=== PATIENT | female | born 1955 ===

== ENCOUNTER 2019-11-08 21:10 | Inpatient (IN) ==
[2019-11-09] MEDS: hydrALAZINE 20 MG/1 ML VIAL IV PRN (01:10)
[2019-11-09 01:35] LABS: Basophils % 0.2 % (0.0-0.8); Eosinophils % 0.1 % (0.00-10.9); Hematocrit 25.6 VOL% (35.7-47.0); Immature Granulocytes % 0.4 %; Immature Granulocytes Absolute 0.08 #; Lymphocytes # 0.6 10*3/uL (1.4-4.0); Lymphocytes % 3.4 % (21.3-54.2); Mean Corpuscular HGB Conc 31.3 GM/DL (32-36); Mean Corpuscular Volume 97.7 FL (87-102); Mean Platelet Volume 11.1 FL (9.6-12.0); Monocytes % 5.2 % (1.7-12.7); Neutrophils % 90.7 % (38.7-73.9); Platelet Count 129 T/CUMM (130-400); Red Blood Count 2.62 MC/CUMM (3.8-5.5); White Blood Count 18.4 T/CUMM (4-12)
[2019-11-09 01:51] LABS: Calcium 9.2 MG/DL (8.5-10.1); Osmolality,Calculated 283.8 MOS/KG (273-304)
[2019-11-09] MEDS ORDERED: BISACODYL 5 MG TABLET PO PRN (01:52)
[2019-11-09] MEDS ORDERED: MORPHINE 4 MG/1 ML VIAL IV PRN (01:52)
[2019-11-09] MEDS ORDERED: ONDANSETRON 4 MG/2 ML VIAL IV PRN (01:52)
[2019-11-09] MEDS ORDERED: DEXTROSE 10% 250 ML BAG IV PRN (01:52)
[2019-11-09] MEDS ORDERED: NICOTINE 21 MG/24 HR PATCH TRANSDERM PRN (01:52)
[2019-11-09] MEDS ORDERED: diphenhydrAMINE CAP 25 MG CAPSULE PO PRN (01:52)
[2019-11-09] MEDS ORDERED: GLUCAGON 1 MG VIAL IM PRN (01:52)
[2019-11-09 02:14] LABS: Risk Ratio 1.75
[2019-11-09 02:18] LABS: Lymphocytes 2 % (20-55); Segmented Neutrophils 94 % (50-85); Total Cells Counted 100
[2019-11-09 02:19] LABS: Hypochromasia 2+; Platelet Estimate Normal
[2019-11-09] MEDS ORDERED: LEVOFLOXACIN INJ 500 MG in PREMIX 1 EACH IV ONE (03:00)
[2019-11-09] MEDS ORDERED: VANCOMYCIN INJ 250 MG in SODIUM CHLORIDE 0.9% 100 ML IV ONE (05:00)
[2019-11-09] MEDS: ACETAMINOPHEN 325 MG TABLET PO PRN ×2 (06:09→11:33)
[2019-11-09] MEDS: ALBUTEROL/IPRATROPIUM 3 ML NEB RESP TX SCH ×3 (08:20→19:25)
[2019-11-09] MEDS ORDERED: HEPARIN 10,000 UNIT/10 ML VIAL IV SCH (08:30)
[2019-11-09] MEDS: INSULIN REGULAR 100 UNIT/ML SUBCUT SCH ×4 (11:00→21:55)
[2019-11-09] MEDS: CALCIUM CARBONATE CHEW 500 MG TABLET PO SCH ×3 (11:33→21:56)
[2019-11-09] MEDS ORDERED: VANCOMYCIN INJ 500 MG in SODIUM CHLORIDE 0.9% 100 ML IV PRN (17:00)
[2019-11-09] MEDS: amLODIPine 10 MG TABLET PO SCH (17:39)
[2019-11-10] MEDS: ALBUTEROL/IPRATROPIUM 3 ML NEB RESP TX SCH ×4 (00:44→19:20)
[2019-11-10] MEDS: INSULIN REGULAR 100 UNIT/ML SUBCUT SCH ×4 (07:52→20:35)
[2019-11-10] MEDS: CALCIUM CARBONATE CHEW 500 MG TABLET PO SCH ×3 (08:46→20:35)
[2019-11-10] MEDS: amLODIPine 10 MG TABLET PO SCH (12:53)
[2019-11-10] MEDS ORDERED: VANCOMYCIN INJ 500 MG in SODIUM CHLORIDE 0.9% 100 ML IV ONE (17:00)
[2019-11-11] MEDS: ALBUTEROL/IPRATROPIUM 3 ML NEB RESP TX SCH ×4 (01:24→19:45)
[2019-11-11] MEDS ORDERED: LEVOFLOXACIN INJ 250 MG in PREMIX 1 EACH IV SCH (03:00)
[2019-11-11 06:04] LABS: Basophils % 0.3 % (0.0-0.8); Eosinophils # 0.1 10*3/uL (0.0-0.87); Eosinophils % 1.1 % (0.00-10.9); Hematocrit 21.6 VOL% (35.7-47.0); Hemoglobin 6.5 GM/DL (12.0-16.0); Immature Granulocytes % 0.8 %; Immature Granulocytes Absolute 0.05 #; Lymphocytes # 1.1 10*3/uL (1.4-4.0); Lymphocytes % 16.3 % (21.3-54.2); Mean Corpuscular HGB Conc 30.1 GM/DL (32-36); Mean Corpuscular Volume 99.1 FL (87-102); Mean Platelet Volume 11.2 FL (9.6-12.0); Monocytes % 11.3 % (1.7-12.7); Neutrophils % 70.2 % (38.7-73.9); Platelet Count 144 T/CUMM (130-400); Red Blood Count 2.18 MC/CUMM (3.8-5.5); Red Cell Distribution Width 14.8 % (9.3-17.3); White Blood Count 6.5 T/CUMM (4-12)
[2019-11-11 06:24] LABS: Calcium 9.1 MG/DL (8.5-10.1); Osmolality,Calculated 285.5 MOS/KG (273-304)
[2019-11-11] MEDS: INSULIN REGULAR 100 UNIT/ML SUBCUT SCH ×4 (08:11→21:49)
[2019-11-11] MEDS: CALCIUM CARBONATE CHEW 500 MG TABLET PO SCH ×3 (09:19→21:12)
[2019-11-11] MEDS: amLODIPine 10 MG TABLET PO SCH (09:19)
[2019-11-11 09:28] LABS: Hematocrit 22.9 VOL% (35.7-47.0); Hemoglobin 6.9 GM/DL (12.0-16.0)
[2019-11-11] MEDS ORDERED: SODIUM CHLORIDE 0.9% 1,000 ML IV PRN (10:39)
[2019-11-11 13:39] LABS: Basophils % 0.5 % (0.0-0.8); Eosinophils # 0.1 10*3/uL (0.0-0.87); Eosinophils % 1.1 % (0.00-10.9); Hematocrit 23.2 VOL% (35.7-47.0); Hemoglobin 6.9 GM/DL (12.0-16.0); Immature Granulocytes % 0.6 %; Immature Granulocytes Absolute 0.04 #; Lymphocytes # 0.8 10*3/uL (1.4-4.0); Lymphocytes % 13.1 % (21.3-54.2); Mean Corpuscular HGB Conc 29.7 GM/DL (32-36); Mean Corpuscular Volume 100.9 FL (87-102); Mean Platelet Volume 10.9 FL (9.6-12.0); Neutrophils % 75.7 % (38.7-73.9); Platelet Count 169 T/CUMM (130-400); White Blood Count 6.4 T/CUMM (4-12)
[2019-11-11 14:04] LABS: Folate 8.7 NG/ML (5.4-24.0); Vitamin B12 313 PG/ML (211-911)
[2019-11-11 14:30] LABS: Myeloperoxidase Antibody < 0.2 U
[2019-11-11 14:55] LABS: Sedimentation Rate-Westergren 107 MM/HR (0-30)
[2019-11-12] MEDS: ALBUTEROL/IPRATROPIUM 3 ML NEB RESP TX SCH ×2 (00:45→07:26)
[2019-11-12 04:51] LABS: Basophils % 0.6 % (0.0-0.8); Eosinophils # 0.2 10*3/uL (0.0-0.87); Eosinophils % 2.4 % (0.00-10.9); Hematocrit 25.9 VOL% (35.7-47.0); Hemoglobin 8.1 GM/DL (12.0-16.0); Immature Granulocytes % 1.4 %; Immature Granulocytes Absolute 0.09 #; Lymphocytes # 1.3 10*3/uL (1.4-4.0); Lymphocytes % 19.6 % (21.3-54.2); Mean Corpuscular HGB Conc 31.3 GM/DL (32-36); Mean Corpuscular Volume 97.4 FL (87-102); Monocytes % 11.9 % (1.7-12.7); Neutrophils % 64.1 % (38.7-73.9); Platelet Count 155 T/CUMM (130-400); Red Blood Count 2.66 MC/CUMM (3.8-5.5); Red Cell Distribution Width 16.2 % (9.3-17.3); White Blood Count 6.6 T/CUMM (4-12)
[2019-11-12] MEDS ORDERED: SODIUM CHLORIDE 0.9% 1,000 ML IV PRN (05:02)
[2019-11-12 05:04] LABS: Calcium 9.2 MG/DL (8.5-10.1); Osmolality,Calculated 296.1 MOS/KG (273-304)
[2019-11-12] MEDS: hydrALAZINE 20 MG/1 ML VIAL IV PRN (07:39)
[2019-11-12 12:51] VITALS: BP 135/65
[2019-11-12] MEDS ORDERED: LEVOFLOXACIN 250 MG TABLET PO ONE (13:22)
[2019-11-13 06:46] LABS: Hemoglobin A1 (Alkaline) 97.1 % (96.5-98.5); Hemoglobin A2 (Alkaline) 2.9 % (1.5-3.5)
== END 2019-11-12 14:00 | disposition home or self-care (01) | DRG 193 ==
LOC: N.CC 23:40 → SUATTDRO 23:40 → N.5E 11-09 16:02
PROVIDERS: ADMIT Internal Medicine; ATTEND Internal Medicine

== ENCOUNTER 2020-03-12 07:55 | Observation (INO) ==
[2020-03-12] MEDS ORDERED: DEXTROSE 50% 25 GM/50 ML VIAL IV PRN (11:05)
[2020-03-12] MEDS ORDERED: ONDANSETRON 4 MG/2 ML VIAL IV PRN (11:05)
[2020-03-12] MEDS ORDERED: DEXTROSE 10% 250 ML BAG IV PRN (11:05)
[2020-03-12] MEDS ORDERED: GLUCAGON 1 MG VIAL IM PRN (11:05)
[2020-03-12] MEDS ORDERED: CALCIUM CARBONATE CHEW 500 MG TABLET PO SCH (11:15)
[2020-03-12] MEDS: INSULIN LISPRO 100 UNIT/ML SUBCUT SCH ×3 (11:53→21:15)
[2020-03-12] MEDS ORDERED: SODIUM POLYSTYRENE SULFATE 15 GM/60 ML BOTTLE PO PRN (13:23)
[2020-03-12] MEDS: CALCIUM CARBONATE CHEW 500 MG TABLET PO SCH ×2 (15:01→17:47)
[2020-03-12] MEDS ORDERED: ACETAMINOPHEN 325 MG TABLET PO PRN (21:29)
[2020-03-13 06:26] LABS: Basophils % 0.1 % (0.0-0.8); Hematocrit 32.4 VOL% (35.7-47.0); Hemoglobin 9.8 GM/DL (12.0-16.0); Immature Granulocytes % 1.3 %; Lymphocytes % 12.3 % (21.3-54.2); Mean Corpuscular HGB Conc 30.2 GM/DL (32-36); Mean Corpuscular Volume 95.3 FL (87-102); Mean Platelet Volume 11.1 FL (9.6-12.0); NRBC # 0.07 10*3/uL; Neutrophils % 83.3 % (38.7-73.9); Platelet Count 190 T/CUMM (130-400); Red Cell Distribution Width 18.5 % (9.3-17.3); White Blood Count 7.9 T/CUMM (4-12)
[2020-03-13 07:07] LABS: Eosinophils 1 % (0-10); Lymphocytes 9 % (20-55); Nucleated Red Blood Cells 1 (0-5); Platelet Estimate Adequate; Segmented Neutrophils 88 % (50-85); Total Cells Counted 100
[2020-03-13 07:18] LABS: Albumin 2.3 G/DL (3.4-5.0); Bilirubin,Total 0.8 MG/DL (0.2-1.0); Calcium 9.6 MG/DL (8.5-10.1); Ferritin 11429.3 ng/ml (8-252); Osmolality,Calculated 290.5 MOS/KG (273-304); Risk Ratio 4.93; Thyroid Stimulating Hormone 2.25 uIU/ml (0.358-3.74); Total Protein 6.7 G/DL (6.4-8.3); VLDL CHOLESTEROL 66.2 MG/DL
[2020-03-13] MEDS: INSULIN LISPRO 100 UNIT/ML SUBCUT SCH ×2 (08:11→11:03)
[2020-03-13] MEDS: CALCIUM CARBONATE CHEW 500 MG TABLET PO SCH ×2 (08:11→11:03)
[2020-03-13] MEDS ORDERED: amLODIPine 10 MG TABLET PO SCH (09:00)
[2020-03-13 11:37] VITALS: BP 90/42
== END 2020-03-13 13:39 | disposition home or self-care (01) ==
LOC: INTOOBSV 09:54 → N.2W 09:54 → SUATTDRO 09:54
PROVIDERS: ADMIT Internal Medicine; ATTEND Internal Medicine